=== PATIENT | female | born 1955 | race African-American/Black ===

== ENCOUNTER 2018-08-10 12:28 | Emergency (ER) | payer BC ==
[~2018-08-10] VITALS: Ht 165.1 cm; Wt 79.5 kg
[2018-08-10 12:35] VITALS: Ht 165.1 cm; Wt 79.5 kg
[2018-08-10] MEDS ORDERED: BP MED (12:40)
[2018-08-10 16:24] LABS: BASOPHILS 0.3 % (0-2); EOSINOPHILS 0.4 % (0-7); HEMATOCRIT 40.6 % (36.0-48.0); HEMOGLOBIN 13.4 g/dL (12-16); IMMATURE GRANULOCYTES 0.2 % (0-5); LYMPHOCYTES 28.4 % (15-50); MCH 26.4 pg (26.0-34.0); MCV 79.9 fL (80.0-100.0); MEAN PLATELET VOLUME 9.8 fL (7.4-10.4); MONOCYTES 4.1 % (2-11); NEUTROPHILS 66.6 % (40-80); PLATELET COUNT 308 10x3/uL (130-400); RBC 5.08 10x6/uL (4.00-5.40); RDW 15.7 % (11.5-14.5); WBC 9.7 10x3/uL (4.8-10.8)
[2018-08-10 16:27] LABS: APPEARANCE CLEAR (CLEAR); BILIRUBIN NEGATIVE (NEGATIVE); COLOR YELLOW (YELLOW); GLUCOSE NEGATIVE (NEGATIVE); KETONE NEGATIVE (NEGATIVE); NITRITE NEGATIVE (NEGATIVE); PROTEIN NEGATIVE (NEGATIVE); UROBILINOGEN NORMAL (NORMAL)
[2018-08-10 16:39] LABS: RED CELLS - URINE OCC /hpf (0-5); WHITE CELLS - URINE OCC /hpf (0-5)
[2018-08-10 16:40] LABS: BACTERIA FEW /hpf (NONE SEEN)
[2018-08-10 16:46] LABS: ALBUMIN 3.6 g/dL (3.4-5.0); ALKALINE PHOSPHATASE 104 U/L (46-116); ALT (SGPT) 22 U/L (10-68); BILIRUBIN - TOTAL 0.33 mg/dL (0.2-1.3); CALC OSMOLALITY 282 mosm/kg (275-300); CALCIUM 9.3 mg/dL (8.5-10.1); CHLORIDE - SERUM 105 mmol/L (98-107); CREATININE - SERUM 0.7 mg/dL (0.6-1.3); GLUCOSE 108 mg/dL (74-106); POTASSIUM - SERUM 3.5 mmol/L (3.5-5.1); PROTEIN - SERUM 7.9 g/dL (6.4-8.2); SODIUM 142 mmol/L (136-145); UREA NITROGEN 9 mg/dL (7-18); eGFR NON AFRICAN AMERICAN 90 mL/min (90-120)
[2018-08-10] MEDS ORDERED: MECLIZINE HCL25 MG PO (18:54)
[2018-08-10] MEDS ORDERED: MACROBID100 MG PO (18:54)
[2018-08-10 19:34] VITALS: BP 145/69
== END 2018-08-10 19:34 | disposition home or self-care (01) ==
LOC: D.ER 12:28
PROVIDERS: Family Medicine
DX: R42 Dizziness and giddiness (principal); N39.0 Urinary tract infection, site not specified; I10 Essential (primary) hypertension